=== PATIENT | female | born 1950 | race Caucasian/White ===

== ENCOUNTER 2017-09-20 16:53 | Emergency (ER) | payer OTHER, MEDICARE ==
[~2017-09-20] VITALS: Ht 157.5 cm; Wt 65.8 kg
[2017-09-20 17:09] VITALS: BP_SYST 127
--- NOTE | 2017-09-20 17:15 | NUR ---
Patient to ER bed 3 to gown for evaluation. Side rails up. Report given to Debra ODONNELL.
--- NOTE | 2017-09-20 17:16 | NUR ---
C/O right thumb pain 6/10 thumb is bruised no AROM of DIP. States injury occured as the result of softball bouncing out of glove.
--- NOTE | 2017-09-20 17:18 | NUR ---
Sahra Ramirez FARM MANAGEMENT AGENT at bedside examining patient
[2017-09-20 18:39] VITALS: BP_SYST 122
--- NOTE | 2017-09-20 18:40 | NUR ---
Patient given written and verbal discharge instructions and verbalizes understanding. ER MD discussed with patient the results and treatment provided. Patient in stable condition. ID arm band removed. Rx of [place] 10-325mg given. Patient educated on pain management and to follow up with PMD. Pain Scale 2/10 tolerable for pt Opportunity for questions provided and answered.
== END 2017-09-20 18:39 | disposition home or self-care (01) ==
LOC: SED 16:53
DX: S62.521A Displaced fracture of distal phalanx of right thumb, initial encounter for closed fracture (principal); Z88.0 Allergy status to penicillin; W21.07XA Struck by softball, initial encounter; Y93.64 Activity, baseball; Y92.39 Other specified sports and athletic area as the place of occurrence of the external cause; Y99.8 Other external cause status
CPT/HCPCS: 99284